=== PATIENT | male | born 1995 | race Caucasian/White ===

== ENCOUNTER → 2017-02-13 | Outpatient (CLI) | payer OTHER | LOC: BMCIMAGING 12:40 | PROVIDERS: ATTEND Family Medicine | DX: M25.512 Pain in left shoulder (principal); W20.8XXA Other cause of strike by thrown, projected or falling object, initial encounter; Y99.0 Civilian activity done for income or pay ==

== ENCOUNTER 2017-02-27 03:00 | Emergency (ER) | payer SELFPAY ==
[2017-02-27] MEDS ORDERED: NS 1,000 ML IV ONE (03:19)
[2017-02-27 03:38] LABS: % IMMATURE GRANULYOCYTES 0.2 % (0.0-1.1); ABSOLUTE IMMATURE GRANULOCYTES 0.02 10^3/uL (0.00-0.10); ADD DIFF? NO; ADD MORPH? NO; ADD SCAN? NO; ATYPICAL LYMPHOCYTE FLAG 10 (0-99); FRAGMENT RBC FLAG 0 (0-99); HEMATOCRIT 49.4 % (40.0-51.0); HEMOGLOBIN 17.4 g/dL (13.7-17.5); LEFT SHIFT FLG 0 (0-99); LIPEMIA HEMOLYSIS FLAG 90 (0-99); MEAN CELL HEMOGLOBIN CONCENTR. 35.2 g/dL (32.4-36.7); MEAN CELL VOLUME 85.2 fL (81.5-99.8); PLATELET CLUMPS FLAG 0 (0-99); PLATELET COUNT 348 10^3/uL (150-400); RED CELL DISTRIBUTION WIDTH 11.9 % (11.5-15.2)
[2017-02-27 03:50] LABS: ANION GAP 16 mEq/L (8-16); CALCIUM 10.9 mg/dL (8.5-10.4); CARBON DIOXIDE 22 mEq/l (22-31); CHLORIDE 100 mEq/L (97-110); CREATININE 0.9 mg/dL (0.7-1.3); ETHANOL SERUM < 10 mg/dL (0-10); GLOMERULAR FILTRATION RATE > 60; GLUCOSE 115 mg/dL (70-100); POTASSIUM 4.2 mEq/L (3.5-5.2); SODIUM 138 mEq/L (134-144)
--- NOTE | 2017-02-27 05:30 | EDPHY ---
H & P Stated Complaint: pt c/o nause x few days - Personal History Current Tetanus Diphtheria and Acellular Pertussis (TDAP): No - Medical/Surgical History Hx Asthma: Yes Hx Chronic Respiratory Disease: No Hx Diabetes: No Hx Cardiac Disease: No Hx Renal Disease: No Hx Cirrhosis: No Hx Alcoholism: No Hx HIV/AIDS: No Hx Splenectomy or Spleen Trauma: No Other PMH: depression - Social History Smoking Status: Never smoked HPI/ROS: Chief Complaint: Depression, suicidal thoughts, nausea vomiting HPI: 21-year-old male with a history of depression, moved here 3 weeks ago from [place] to live with his aunt. He is not currently taking any medications. Has been seeing a therapist. Patient states for the last several days he has been having worsening suicidal thoughts. Does not have a plan. He is not feeling homicidal. Patient is also complaining of some loose stools for the last week. He has been having 1-2 loose stools today. No fevers or chills. No blood or melena. Some nausea. Did vomit yesterday. No blood in his vomit. No chest pain or shortness of breath. No abdominal pain. ROS: 10 point Review of Systems is negative except as noted in the HPI. PMH: Depression Social History: No smoking, no alcohol, occasional marijuana Family History: non-contributory Physical Exam: Gen: Awake, Alert, No Distress HEENT: Nose: no rhinorrhea Eyes: PERRLA, EOMI Mouth: Moist mucosa Neck: Supple, no JVD Chest: nontender, lungs clear to auscultation Heart: S1, S2 normal, no murmur Abd: Soft, non-tender, no guarding Back: no CVA tenderness, no midline tenderness Ext: no edema, non-tender Skin: no rash Neuro: CN II-XII intact, Sensation grossly intact, Strength 5/5 in bilateral upper and lower extremities (Dean Hernández) Constitutional: Initial Vital Signs Temperature (C) 36.9 C 02/27/17 03:04 Heart Rate 82 02/27/17 03:04 Respiratory Rate 18 02/27/17 03:04 Blood Pressure 170/107 H 02/27/17 03:04 O2 Sat (%) 97 02/27/17 03:04 O2 Delivery Mode Room Air Allergies/Adverse Reactions: No Known Allergies Allergy (Unverified 02/27/17 03:04) Medical Decision Making ED Course/Re-evaluation: 21-year-old male presenting with suicidal ideation and depression. He is not able to contract for safety. He is also having some occasional loose stools for the last week but no real praveen diarrhea. Did have some vomiting yesterday. He is well-appearing. Has benign exam. No acute medical process at this time. Patient is medically cleared for mental health evaluation. [id number] patient signed out to Dr. Oliver pending mental health evaluation. (Dean Hernández) Other Provider: I assumed care of this patient from Dr. Hernández at 7:00 a.m. on February 27, 2017. He has been evaluated by the mental health team. Arrangements are made for him to go to [facility]. At 11:00 a.m. transportation is being set up. He will likely go by [email or web address]. He is currently on a detainer. He is in agreement with this plan. At the time of my evaluation he is awake, eating. He has very flat affect. Heart is regular, lungs are clear to auscultation. (Rosa Oliver) - Data Points Laboratory Results: Laboratory Results 02/27/17 03:19 02/27/17 03:19 Medications Given: Discontinued Medications Sodium Chloride (Ns) 1,000 mls @ 0 mls/hr IV ONCE ONE; Wide Open PRN Reason: Protocol Stop: 02/27/17 03:20 Last Admin: 02/27/17 03:48 Dose: 1,000 mls Departure - Departure Disposition: Other Psych, Not [place] Clinical Impression: Suicidal ideation Condition: Good Referrals: NONE *PRIMARY CARE P,. [Primary Care Provider] - As per Instructions
[2017-02-27 08:38] VITALS: O2SAT 95
[2017-02-27 12:49] VITALS: BP 158/90; PULSE 90; RESP 17; TEMP 98.8
== END 2017-02-27 12:20 ==
DX: R45.851 Suicidal ideations (principal); E86.9 Volume depletion, unspecified; J45.909 Unspecified asthma, uncomplicated
CPT/HCPCS: 80305; G0480

== ENCOUNTER → 2017-03-28 | Outpatient (CLI) | payer OTHER | LOC: FIMAGING 08:54 | PROVIDERS: ATTEND Physician Assistant | DX: M75.82 Other shoulder lesions, left shoulder (principal); M75.22 Bicipital tendinitis, left shoulder ==